=== PATIENT | female | born 1990 | race Two or more races ===

== ENCOUNTER 2021-08-02 08:14 | Emergency (ER) | payer OTHER ==
[~2021-08-02] VITALS: Ht 167.6 cm; Wt 97.5 kg
[2021-08-02 08:19] VITALS: BP 150/91
[2021-08-02] MEDS ORDERED: ACETAMINOPHEN 500 MG TAB PO ONE (09:00)
[2021-08-02] MEDS ORDERED: TETANUS-DIPTH-ACEL PERTUSSIS 0.5ML SYR Tdap IM ONE (09:15)
[2021-08-02] MEDS ORDERED: IBUP800T27 PO (09:35)
[2021-08-02] MEDS ORDERED: CEPH-509 PO (09:35)
== END 2021-08-02 09:44 | disposition home or self-care (01) ==
LOC: EDBD 08:14 → ER 08:33
DX: S01.511A Laceration without foreign body of lip, initial encounter (principal); R51.9 Headache, unspecified; V43.52XA Car driver injured in collision with other type car in traffic accident, initial encounter; Y93.89 Activity, other specified; Y92.410 Unspecified street and highway as the place of occurrence of the external cause; Y99.8 Other external cause status
CPT/HCPCS: 12013; 90471; 90715